=== PATIENT | female | born 1965 | race Two or more races ===

== ENCOUNTER → 2016-10-02 | Outpatient (CLI) | payer BC ==
--- NOTE | 2016-10-02 14:00 | CARD ---
APPROVED REPORT EXAM: Two-dimensional and M-mode echocardiogram with Doppler and color Doppler. Other Information Quality : Average Rhythm : NSR INDICATION Fatigue 2D DIMENSIONS RVDd2.1 (2.9-3.5cm)Left Atrium(2D)2.6 (1.6-4.0cm) IVSd1.1 (0.7-1.1cm)Aortic Root(2D)2.6 (2.0-3.7cm) LVDd3.9 (3.9-5.9cm)LVOT Diameter1.9 (1.8-2.4cm) PWd1.1 (0.7-1.1cm)LVDs2.8 (2.5-4.0cm) FS (%) 27.8 %SV36.5 ml LVEF(%)54.5 (>50%) Aortic Valve AoV Peak Haile.125.1cm/sAoV VTI23.3cm AO Peak GR.6.3mmHgLVOT Peak Haile.80.8cm/s LVOT VTI 15.76cmAO Mean GR.3mmHg DANIELLE (VMAX)1.84mw7AAB (VTI)1.94cm2 Mitral Valve MV E Ehasmwux74.4cm/sMV DECEL VFOP424az MV A Pcetfgxw96.2cm/sMV E Mean Gr.2mmHg MV SSK78ceL/A Ratio1.0 MV A Ufgkzulo906qiRON (PHT)3.33cm2 TDI E/Lateral E'5.8E/Medial E'11.5 Pulmonary Valve PV Peak Xjbeuhhk69.4cm/sPV Peak Grad.3mmHg RVOT VTI16.1cm Tricuspid Valve TR P. Ptjleazt279lr/sRAP WQTLVZBB7bnGj TR Peak Gr.51yxUsPEDN44vdZv Pulmonary Vein S1 Mzshiemf31.1cm/sD2 Fbioqmtr37.5cm/s LEFT VENTRICLE The left ventricle is normal size. There is normal left ventricular wall thickness. Left ventricle sy stolic function is normal. The Ejection Fraction is 50-55%. There is normal LV segmental wall motion. The left ventricular diastolic function and filling is normal for age. RIGHT VENTRICLE The right ventricle is normal size. The right ventricular systolic function is normal. ATRIA The left atrium size is normal. The right atrium size is normal. The interatrial septum is intact wit h no evidence for an atrial septal defect or patent foramen ovale as noted on 2-D or Doppler imaging. AORTIC VALVE The aortic valve is normal in structure and function. The aortic valve is trileaflet. Doppler and Col or Flow revealed no significant aortic regurgitation. There is no significant aortic valvular stenosi s. MITRAL VALVE The mitral valve is normal in structure and function. There is no mitral valve stenosis. Doppler and Color Flow revealed trace mitral regurgitation. TRICUSPID VALVE The tricuspid valve is normal in structure and function. Doppler and Color Flow revealed trace tricus pid regurgitation. The PA pressure was estimated at 24 mmHg. There is no tricuspid valve stenosis. PULMONIC VALVE The pulmonic valve is not well visualized. Doppler and Color Flow revealed no pulmonic valvular regur gitation. There is no pulmonic valvular stenosis. GREAT VESSELS The aortic root is normal in size. Normal pulmonary venous flow (Doppler). The IVC is normal in size and collapses >50% with inspiration. PERICARDIAL EFFUSION There is no evidence of significant pericardial effusion. Critical Notification Critical Value: No <Conclusion> Left ventricle systolic function is normal. The Ejection Fraction is 50-55%. There is normal LV segmental wall motion. No valvular disease, pulmonary HTN or pericardial effusion to account for fatigue.
== END | disposition home or self-care (01) ==
LOC: ECHO 09:48
PROVIDERS: ATTEND Internal Medicine Cardiovascular Disease
DX: I34.0 Nonrheumatic mitral (valve) insufficiency (principal); I07.1 Rheumatic tricuspid insufficiency
CPT/HCPCS: 93306

== ENCOUNTER → 2019-03-27 | Outpatient (CLI) | payer BC ==
--- NOTE | 2019-03-27 16:11 | KCIC ---
Bilateral digital screening mammograms: Reason for examination: Routine baseline screening. Interpretation was made with the benefit of CAD. The skin and nipples show no abnormalities. No abnormal axillary lymph nodes are seen. The breast parenchyma shows scattered fibroglandular density. (Breast density: Category B.) There are no dominant masses, suspicious calcifications or architectural distortions. Impression: No evidence of malignancy. Recommend routine screening. BI-RADS Category 1: Negative. "Our facility is accredited by the [employer] Mammography Program." This patient's information has been entered into a reminder system for the patient to be notified with the results of her examination and a target date for the next mammogram. Electronically signed by: Mary Stiles MD (03/27/2019 4:09 PM) [id number]
== END | disposition home or self-care (01) ==
LOC: KCIC MAMMO 12:42
PROVIDERS: ATTEND Family Medicine
DX: Z12.31 Encounter for screening mammogram for malignant neoplasm of breast (principal)
CPT/HCPCS: 77067

== ENCOUNTER → 2020-02-17 | Outpatient (CLI) | payer BC ==
--- NOTE | 2020-02-17 15:07 | KCIC ---
EXAM: Keen scale and color Doppler renal sonogram. HISTORY: Decreased renal function. TECHNIQUE: Keen scale and color Doppler sonographic imaging of the kidneys and renal arteries with spectral waveform analysis was performed. COMPARISON: None. FINDINGS: The right kidney measures 9.0 cm whgx-wk-ziay. The left kidney measures 8.1 cm idqu-oe-bltv. There are simple renal cysts, measuring 2.3 cm on the right and 1.7 cm on the left. There is no hydronephrosis. The prevoid bladder volume is 42 cc. The right ureteral jet is not seen during the exam. There are normal bilateral renal artery peak systolic velocities and renal artery to aorta velocity ratios. IMPRESSION: 1. No Doppler evidence of greater than 60 percent stenosis involving the renal arteries. 2. Simple bilateral renal cysts. Follow-up is not routinely recommended for simple cysts. 3. Mild left renal atrophy and low normal right renal size. Electronically signed by: Kendal Wilcox MD (02/17/2020 3:04 PM) [email or web address]
--- NOTE | 2020-02-17 15:08 | KCIC ---
EXAM: Keen scale and color Doppler renal sonogram. HISTORY: Decreased renal function. TECHNIQUE: Keen scale and color Doppler sonographic imaging of the kidneys and renal arteries with spectral waveform analysis was performed. COMPARISON: None. FINDINGS: The right kidney measures 9.0 cm oulo-lq-dryj. The left kidney measures 8.1 cm lskx-bt-uqba. There are simple renal cysts, measuring 2.3 cm on the right and 1.7 cm on the left. There is no hydronephrosis. The prevoid bladder volume is 42 cc. The right ureteral jet is not seen during the exam. There are normal bilateral renal artery peak systolic velocities and renal artery to aorta velocity ratios. IMPRESSION: 1. No Doppler evidence of greater than 60 percent stenosis involving the renal arteries. 2. Simple bilateral renal cysts. Follow-up is not routinely recommended for simple cysts. 3. Mild left renal atrophy and low normal right renal size. Electronically signed by: Kendal Wilcox MD (02/17/2020 3:04 PM) [email or web address]
== END | disposition home or self-care (01) ==
LOC: KCIC US 08:52
PROVIDERS: ATTEND Family Medicine
DX: N28.1 Cyst of kidney, acquired (principal); N26.1 Atrophy of kidney (terminal)
CPT/HCPCS: 76770; 93975